=== PATIENT | female | born 1955 | race Caucasian/White ===

== ENCOUNTER 2020-04-02 04:01 | Observation (INO) ==
[2020-04-02 06:00] LABS: ABS Basophils 0.1 10^3/ul (0-0.2); ABS Eosinophils 0.1 10^3/ul (0-0.6); ABS Lymphocytes 1.9 10^3/ul (1.0-4.8); ABS Monocytes 0.5 10^3/ul (0-0.8); Hematocrit 41 % (35-47); Hemoglobin 13.8 g/dL (12.0-16.0); Lymphocyte % 28.3 %; Mean Corpuscular HGB Conc 34 g/dL (31-36); Mean Corpuscular Hemoglobin 32 pg (27-31); Mean Corpuscular Volume 94 fL (80-97); Platelet Count 176 10^3/uL (150-450); Red Cell Distribution Width 13 % (10-15); White Blood Count 6.7 10^3/uL (3.5-10.8)
[2020-04-02 06:29] LABS: ALT 21 U/L (7-52); AST 33 U/L (13-39); Albumin 4.1 g/dL (3.2-5.2); Albumin/Globulin Ratio 1.5 (1-3); Alkaline Phosphatase 79 U/L (34-104); Anion Gap 7 mmol/L (2-11); BUN/Creatinine Ratio 32.7 (8-20); Blood Urea Nitrogen 35 mg/dL (6-24); CO2 Carbon Dioxide 25 mmol/L (22-32); Calcium 10.9 mg/dL (8.6-10.3); Chloride 104 mmol/L (101-111); EGFR African American 62.3 (>60); EGFR Non-African American 51.5 (>60); Globulin 2.7 g/dL (2-4); Glucose 103 mg/dL (70-100); Potassium 3.9 mmol/L (3.5-5.0); Sodium 136 mmol/L (135-145); Total Protein 6.8 g/dL (6.4-8.9)
[2020-04-02 06:33] LABS: Troponin I 0.05 ng/mL (<0.03)
[2020-04-02] MEDS ORDERED: oxyCODONE/Acetamin 5/325 mg TAB PO ONE (06:45)
[2020-04-02 08:41] LABS: Troponin I 0.18 ng/mL (<0.03)
[2020-04-02] MEDS ORDERED: Al Hydrox/Mg Hydrox/Simet LIQ 30 ML UDC PO PRN (09:50)
[2020-04-02] MEDS ORDERED: NS 0.9% 1000 ml BAG 1,000 ML IV SCH (10:15)
[2020-04-02 11:44] LABS: Troponin I 0.17 ng/mL (<0.03)
[2020-04-02] MEDS ORDERED: Albuterol HFA INHALER 8 gm MDI INH PRN (12:51)
[2020-04-02] MEDS ORDERED: Heparin 5000 UNITS/ML 1 mL VIAL SUBCUT SCH (14:00)
[2020-04-02] MEDS ORDERED: Iodixanol (CONTRAST) 320 MG/ML 100 ML SDV IV ONE (16:54)
[2020-04-02 18:19] VITALS: BP 130/90
[2020-04-03] MEDS ORDERED: Aspirin EC 81 mg TAB.EC (enteric coated) PO SCH (09:00)
== END 2020-04-02 18:39 | disposition home or self-care (01) ==
LOC: MEDTELE 04:01 → ED 04:01 → MEDTELE 15:01
PROVIDERS: ADMIT Internal Medicine; ATTEND Internal Medicine